=== PATIENT | female | born 1945 ===

== ENCOUNTER 2022-07-06 06:00 | Day surgery (SDC) | payer OTHER ==
[~2022-07-06 06:00] MED LIST: COZAAR100 MG PO; GLUMETZA500 MG PO; HYDRALAZINE HCL25 MG PO; HYDROCHLOROTHIA25 MG PO; JANUVIA50 MG PO; PLAVIX75 MG PO; SULFAZINE EC500 MG PO; SYNTHROID75 MCG PO; ZETIA10 MG PO
== END 2022-07-06 14:00 | disposition home or self-care (01) ==
LOC: CIR.AMB 06:00
PROVIDERS: ATTEND Colon & Rectal Surgery
DX: D12.8 Benign neoplasm of rectum (principal); K64.8 Other hemorrhoids; Z20.822 Contact with and (suspected) exposure to COVID-19; Z91.018 Allergy to other foods; I10 Essential (primary) hypertension; E11.9 Type 2 diabetes mellitus without complications; Z79.84 Long term (current) use of oral hypoglycemic drugs